=== PATIENT | female | born 1985 | race Caucasian/White ===

== ENCOUNTER 2020-06-20 15:12 | Inpatient (IN) ==
[2020-06-20] MEDS ORDERED: Ketorolac 15 MG/ML VIAL IVP ONE (15:43)
[2020-06-20] MEDS: 0.9 % Sodium Chloride 1,000 ML IVC SCH ×3 (15:44→21:22)
[2020-06-20 15:52] LABS: Bacteria,Urine Few per hpf (None-Few); Bilirubin,Urine Negative (Negative); Blood,Urine Moderate (Negative); Clarity,Urine Clear (Clear); Color,Urine Yellow (Yellow); Glucose,Urine (UA) Normal (Normal); Ketones,Urine Trace mg/dL (Negative); Leukocyte Esterase,Urine Moderate (Negative); Mucus,Urine Few per lpf (None-Few); Nitrite,Urine Negative (Negative); PH,Urine 6.5 pH Units (5.0-8.0); Protein,Urine 100 mg/dL (Neg-Trace); RBC,Urine 50-100 per hpf (0-3); Specific Gravity,Urine 1.025 (1.010-1.025); Squamous Epithelial Cell,Urine Few per hpf (None-Few); Urobilinogen,Urine Normal (Normal); WBC,Urine TNTC per hpf (0-3)
[2020-06-20 15:52] LABS: Basophils % 0.3 %; Eosinophils % 0.4 %; Hematocrit 31.6 % (35.3-44.9); Hemoglobin 10.2 g/dL (11.5-15.4); Immature Granulocytes % 1.1 % (0-4); Lymphocytes % 11.3 %; Mean Corpuscular HGB Conc 32.3 g/dL (31.6-35.5); Mean Corpuscular Hemoglobin 28.4 pg (28.0-33.3); Mean Platelet Volume 10.1 fL (9.4-12.4); Monocytes # 1.1 K/mcL (0.0-1.3); Neutrophils # 6.7 K/mcL (1.6-8.9); Platelet Count 208 K/mcL (140-400); Red Blood Count 3.59 M/mcL (3.82-4.97); Red Cell Distribution Width 14.5 % (11.5-14.5); Segmented Neutrophils % 74.9 %; White Blood Count 8.9 K/mcL (4.3-11.1)
[2020-06-20 16:34] LABS: INR 1.2; Prothrombin Time 14.1 Seconds (9.4-12.1)
[2020-06-20 16:37] LABS: Activated Partial Thrombo Time 30.9 Seconds (26.0-36.0)
[2020-06-20 16:54] LABS: BUN/Creatinine Ratio 19 (6-26); Blood Urea Nitrogen 15 mg/dL (6-20); Calcium 9.4 mg/dL (8.6-10.3); Carbon Dioxide 20 mEq/L (23-29); Chloride 103 mEq/L (98-107); Glucose 87 mg/dL (70-105); Lipase 15 Units/L (11-82); Osmolality,Calculated 276 (280-300); Potassium 3.6 mEq/L (3.5-5.1); Sodium 133 mEq/L (136-145); eGFR For African Americans > 60 (> 60); eGFR For Non-African Americans > 60 (> 60)
[2020-06-20] MEDS ORDERED: Isovue-370 500 ML BOTTLE IVP ONE (17:08)
[2020-06-20] MEDS ORDERED: Piperacillin/Tazobactam 3.375 GM in 0.9 % Sodium Chloride Mini Bag 100 ML IVPB ONE (17:12)
[2020-06-20 17:54] LABS: Albumin 3.1 g/dL (3.5-5.7); Bilirubin,Direct 0.1 mg/dL (0.0-0.2); Bilirubin,Indirect 0.2 mg/dL (0.0-1.0); Bilirubin,Total 0.3 mg/dL (0.3-1.0); Phosphorous 3.1 mg/dL (2.7-4.5); Total Protein 6.1 g/dL (6.4-8.9)
[2020-06-20] MEDS ORDERED: *HR* FentaNYL (PF) 100 MCG/2 ML VIAL IVP ONE (17:54)
[2020-06-20] MEDS ORDERED: Aspirin 81 MG TAB.CHEW PO ONE (18:04)
[2020-06-20] MEDS ORDERED: Naloxone 0.4 MG/ML INJ IVP PRN (19:21)
[2020-06-20] MEDS: Acetaminophen 325 MG TABLET PO PRN (21:27)
[2020-06-20] MEDS: Ondansetron 4 MG/2 ML VIAL IVP PRN (22:56)
[2020-06-20] MEDS: Morphine Sulfate 2 MG/ML SYRINGE IVP PRN (22:57)
[2020-06-21] MEDS: Piperacillin/Tazobactam 3.375 GM in 0.9 % Sodium Chloride Mini Bag 100 ML IVPB SCH ×2 (01:32→07:52)
[2020-06-21 04:10] LABS: Basophils % 0.3 %; Eosinophils % 0.5 %; Hemoglobin 8.6 g/dL (11.5-15.4); Immature Granulocytes % 1.1 % (0-4); Lymphocytes # 1.2 K/mcL (0.6-4.6); Lymphocytes % 18.8 %; Mean Corpuscular HGB Conc 33.1 g/dL (31.6-35.5); Mean Corpuscular Hemoglobin 29.4 pg (28.0-33.3); Mean Corpuscular Volume 88.7 fL (83.0-100.0); Mean Platelet Volume 9.9 fL (9.4-12.4); Monocytes # 0.9 K/mcL (0.0-1.3); Monocytes % 14.2 %; Neutrophils # 4.3 K/mcL (1.6-8.9); Platelet Count 185 K/mcL (140-400); Red Blood Count 2.93 M/mcL (3.82-4.97); Red Cell Distribution Width 14.6 % (11.5-14.5); Segmented Neutrophils % 65.1 %; White Blood Count 6.6 K/mcL (4.3-11.1)
[2020-06-21 04:33] LABS: BUN/Creatinine Ratio 15 (6-26); Blood Urea Nitrogen 12 mg/dL (6-20); Calcium 8.1 mg/dL (8.6-10.3); Carbon Dioxide 17 mEq/L (23-29); Chloride 109 mEq/L (98-107); Glucose 79 mg/dL (70-105); Magnesium 1.8 mg/dL (1.6-2.6); Osmolality,Calculated 281 (280-300); Phosphorous 4.1 mg/dL (2.7-4.5); Potassium 3.7 mEq/L (3.5-5.1); Sodium 136 mEq/L (136-145); eGFR For African Americans > 60 (> 60); eGFR For Non-African Americans > 60 (> 60)
[2020-06-21] MEDS: Morphine Sulfate 2 MG/ML SYRINGE IVP PRN ×2 (06:17→10:33)
[2020-06-21] MEDS: 0.9 % Sodium Chloride 1,000 ML IVC SCH (07:52)
[2020-06-21] MEDS: Ondansetron 4 MG/2 ML VIAL IVP PRN ×2 (07:57→23:19)
[2020-06-21] MEDS: cefTRIAXone 1,000 MG in 0.9 % Sodium Chloride Mini Bag 100 ML IVPB SCH (10:24)
[2020-06-21] MEDS ORDERED: *HR* OxyCODONE/APAP 5/325 TABLET PO PRN (12:53)
[2020-06-21] MEDS: *HR* OxyCODONE/APAP 5/325 TABLET PO PRN ×2 (14:25→21:24)
[2020-06-21] MEDS: Acetaminophen 325 MG TABLET PO PRN (23:16)
[2020-06-22] MEDS: *HR* OxyCODONE/APAP 5/325 TABLET PO PRN ×4 (03:40→21:34)
[2020-06-22 06:37] LABS: Hematocrit 28.3 % (35.3-44.9); Hemoglobin 9.4 g/dL (11.5-15.4); Mean Corpuscular HGB Conc 33.2 g/dL (31.6-35.5); Mean Corpuscular Hemoglobin 28.7 pg (28.0-33.3); Mean Corpuscular Volume 86.5 fL (83.0-100.0); Mean Platelet Volume 9.6 fL (9.4-12.4); Platelet Count 233 K/mcL (140-400); Red Blood Count 3.27 M/mcL (3.82-4.97); Red Cell Distribution Width 14.7 % (11.5-14.5); White Blood Count 6.3 K/mcL (4.3-11.1)
[2020-06-22 06:52] LABS: BUN/Creatinine Ratio 16 (6-26); Blood Urea Nitrogen 12 mg/dL (6-20); Calcium 8.7 mg/dL (8.6-10.3); Carbon Dioxide 23 mEq/L (23-29); Chloride 106 mEq/L (98-107); Glucose 80 mg/dL (70-105); Osmolality,Calculated 283 (280-300); Potassium 3.6 mEq/L (3.5-5.1); Sodium 137 mEq/L (136-145); eGFR For African Americans > 60 (> 60); eGFR For Non-African Americans > 60 (> 60)
[2020-06-22] MEDS: cefTRIAXone 1,000 MG in 0.9 % Sodium Chloride Mini Bag 100 ML IVPB SCH (09:53)
[2020-06-22] MEDS: Ondansetron 4 MG/2 ML VIAL IVP PRN ×2 (10:02→20:05)
[2020-06-23 02:37] LABS: Hematocrit 30.3 % (35.3-44.9); Mean Corpuscular Hemoglobin 29.2 pg (28.0-33.3); Mean Corpuscular Volume 88.3 fL (83.0-100.0); Mean Platelet Volume 9.8 fL (9.4-12.4); Platelet Count 264 K/mcL (140-400); Red Blood Count 3.43 M/mcL (3.82-4.97); Red Cell Distribution Width 14.5 % (11.5-14.5); White Blood Count 7.4 K/mcL (4.3-11.1)
[2020-06-23 02:56] LABS: BUN/Creatinine Ratio 19 (6-26); Blood Urea Nitrogen 16 mg/dL (6-20); Carbon Dioxide 25 mEq/L (23-29); Chloride 102 mEq/L (98-107); Glucose 94 mg/dL (70-105); Osmolality,Calculated 281 (280-300); Potassium 4.1 mEq/L (3.5-5.1); Sodium 135 mEq/L (136-145); eGFR For African Americans > 60 (> 60); eGFR For Non-African Americans > 60 (> 60)
[2020-06-23] MEDS: *HR* OxyCODONE/APAP 5/325 TABLET PO PRN ×2 (03:53→10:17)
[2020-06-23] MEDS: Ondansetron 4 MG/2 ML VIAL IVP PRN ×2 (03:54→10:17)
[2020-06-23 07:06] VITALS: BP 108/73
[2020-06-23] MEDS: cefTRIAXone 1,000 MG in 0.9 % Sodium Chloride Mini Bag 100 ML IVPB SCH (09:08)
[2020-06-23] MEDS: Acetaminophen 325 MG TABLET PO PRN (09:09)
== END 2020-06-23 11:55 | disposition home or self-care (01) | DRG 872 ==
LOC: 3BNU 15:12 → EMEROOARM 15:12 → 3BNU 19:41 → SUATTDRO 06-21 12:16
PROVIDERS: ADMIT Internal Medicine; ATTEND Nurse Practitioner Adult Health